=== PATIENT | male | born 1960 | race Two or more races ===

== ENCOUNTER 2020-11-18 11:59 | Inpatient (IN) | payer OTHER ==
[~2020-11-18] VITALS: Ht 172.7 cm; Wt 104.3 kg
[2020-11-18] MEDS ORDERED: COZAAR50 MG (12:41)
--- NOTE | 2020-11-18 12:41 | NUR ---
SE RECIBE PTE ALERTA Y ORIENTADO X3,REFIERE TENER KATIE VETO EN EL DUCTO BILIAR ,REFIERE TENER PICOR ,OJOS AMARILLENTOS ,DINH TENIDO DOLOR ABDOMINAL.
--- NOTE | 2020-11-18 13:32 | NUR ---
PACIENTE EVALUADO POR EL MEDICO EN [place], SE VERIFICAN LAS ORDENES MEDICAS Y SE LE ORIENTA SOBRE LAS MISMAS. SE LE ADMINISTRA LOS MEDICAMENTOS, SE LE GEOFF LAS MUETRAS DE MOON, SE LE NOTIFICA A LA TRABAJADORA SOCIAL SOBRE CONSULTA Y SONOGRAMA ABDOMINAL, KEYONNA LAS ORDENES MEDICAS.
--- NOTE | 2020-11-18 21:58 | NUR ---
SE EJECUTA ORDEN MEDICA EN CASTILLO TOTALIDAD, SE REALIZA ADMINISTRACION DE MEDICAMENTOS POR ORDEN DE ADMSION. SE ORIENTO A PACIENTE SOBRE USO Y EFECTOS.
--- NOTE | 2020-11-18 23:00 | NUR ---
PACIENTE ALERTA Y ORIENTADO EN SARAH MIRANDA ESFERAS, PRESENTA BUEN PATRON RESPIRATORIO Y PATTIE DE DOLOR. RECIBIENDO 0.9% NSS A 100 ML/HR, VENOPUNCION PATENTE Y PATTIE DE S/S DE FLELBITIS E INFILTRACION. PENDIENTE EVALUACION DE TRABAJO SOCIAL DEBIDO A QUE EL PACIENTE NO TIENE SEGURO MEDICO.
--- NOTE | 2020-11-19 10:49 | NUR ---
SE RECIBE PTE ALERTA Y ORIENTADO X3 EN [place], PTE CON H/L COLOCADO EL CUAL S EENCUENTRA PATENTE Y PATTIE DE EDEMA. POTE CON IV FLUIDS COLOCADO. PTE CONSULTADO CON TRABAJO SOCIAL PARA SEGUIMIENTO CON PLAN MEDICO.
== END 2020-12-03 13:34 | disposition home or self-care (01) | DRG 446 ==
LOC: ER 11:59 → MEDI 11-19 15:38 → MEDJ 11-23 11:46 → MEDI 11-24 21:36
PROVIDERS: ADMIT Internal Medicine; ATTEND Internal Medicine
PROC: BF37ZZZ Magnetic Resonance Imaging (MRI) of Pancreas (ICD-10-PCS; principal; 2020-11-19)
PROC: 0F798DZ Dilation of Common Bile Duct with Intraluminal Device, Via Natural or Artificial Opening Endoscopic (ICD-10-PCS; 2020-12-02)
PROC: BF10YZZ Fluoroscopy of Bile Ducts using Other Contrast (ICD-10-PCS; 2020-12-02)
DX: K80.41 Calculus of bile duct with cholecystitis, unspecified, with obstruction (principal); Z20.822 Contact with and (suspected) exposure to COVID-19

== ENCOUNTER 2021-01-10 06:40 | Day surgery (SDC) | payer OTHER ==
[~2021-01-10 06:40] MED LIST: COZAAR50 MG
== END 2021-01-10 16:00 | disposition home or self-care (01) ==
LOC: AMB-ENDOS 06:40
PROVIDERS: ATTEND Internal Medicine Gastroenterology
DX: K80.50 Calculus of bile duct without cholangitis or cholecystitis without obstruction (principal); Z20.822 Contact with and (suspected) exposure to COVID-19